=== PATIENT | female | born 1960 | race Caucasian/White ===

== ENCOUNTER 2024-02-15 10:42 | Emergency (ER) | payer MEDICARE, OTHER ==
[~2024-02-15] VITALS: Ht 165.1 cm; Wt 49.9 kg
[2024-02-15 10:45] VITALS: O2SAT 97
== END 2024-02-15 11:03 | disposition home or self-care (01) ==
LOC: ER 10:42
DX: K50.012 Crohn's disease of small intestine with intestinal obstruction (principal); Z93.3 Colostomy status; Z88.1 Allergy status to other antibiotic agents
CPT/HCPCS: A4606; A4663

== ENCOUNTER 2025-01-03 14:46 | Inpatient (IN) | payer MEDICARE, OTHER ==
[~2025-01-03] VITALS: Ht 167.6 cm; Wt 49.9 kg
[2025-01-03 08:40] VITALS: BP 99/55; TEMP 99.1; O2SAT 95
[2025-01-03 15:34] LABS: *BILIRUBIN,URIN NEGATIVE (NEGATIVE); *KETONES,URINE TRACE (NEGATIVE); *PROTEIN,URINE 1+ (NEGATIVE); *UROBILINOGEN,URINE 0.2 E.U./dl (NORMAL); LEUKOCYTE ESTERASE ,URINE TRACE (NEGATIVE); NITRITE, URINE POSITIVE (NEGATIVE); UGLUCOSE NEGATIVE (NEGATIVE)
[2025-01-03 15:46] LABS: *BLOOD, URINE TRACE (NEGATIVE)
[2025-01-03 15:47] LABS: *CLARITY,URINE SLIGHTLY CLOUDY (CLEAR); *COLOR,URINE DARK YELLOW (YELLOW)
[2025-01-03] MEDS ORDERED: ONDANSETRON 4 MG/2 ML VIAL ONE (15:57)
[2025-01-03] MEDS ORDERED: HYDROMORPHONE 1 MG/1 ML DISP.SYRIN ONE ×2 (15:57→16:52)
[2025-01-03 16:01] LABS: SQUAMOUS EPITHELIAL CELL,UR FEW /HPF (NONE SEEN); URINE AMORPHOUS URATE MODERATE /HPF
[2025-01-03] MEDS: ONDANSETRON 4 MG/2 ML VIAL IV ONE (16:10)
[2025-01-03] MEDS: IV NORMAL SALINE 1000 ML BAG IV ONE (16:10)
[2025-01-03] MEDS: HYDROMORPHONE 1 MG/1 ML DISP.SYRIN IV ONE ×2 (16:10→17:04)
[2025-01-03 16:24] LABS: PLATELET COUNT (AUTO) 305 K/uL (179-408); RED BLOOD CELL COUNT(AUTO) 3.89 MIL/uL (3.63-4.92); RED CELL DISTRIBUTION WIDTH 12.5 % (12.3-17.7); WHITE BLOOD COUNT (AUTO) 9.6 K/uL (3.8-11.8)
[2025-01-03 16:31] LABS: CREATININE 0.8 mg/dL (0.6-1.3); SODIUM SERUM 136 mmol/L (136-145); UREA NITROGEN, BLOOD 19 mg/dL (7-18)
[2025-01-03 16:49] LABS: ASPARTATE AMINOTRANSFERASE 15 U/L (15-37); TOTAL PROTEIN, SERUM 7.1 g/dL (6.4-8.2)
[2025-01-03] MEDS ORDERED: CEFTRIAXONE /D5W 50ML IVPB **ER PYXIS IV ONE (18:50)
[2025-01-03] MEDS ORDERED: KETOROLAC TROMETHAMINE 30 MG INJ ONE (18:50)
[2025-01-03] MEDS ORDERED: LORAZEPAM 2 MG/1 ML VIAL ONE (18:51)
[2025-01-03] MEDS: LORAZEPAM 2 MG/1 ML VIAL IV ONE (19:03)
[2025-01-03] MEDS: KETOROLAC TROMETHAMINE 30 MG INJ IVP ONE (19:03)
[2025-01-03 19:30] VITALS: BP 118/57
[2025-01-03] MEDS ORDERED: ACETAMINOPHEN 325 MG TABLET PO PRN (22:00)
[2025-01-03] MEDS ORDERED: REMEDY ESSENTIAL ZINC PASTE 113 GM TP PRN (22:00)
[2025-01-03] MEDS ORDERED: MAGNESIUM HYDROXIDE 30 ML LIQUID UDC PO PRN (22:00)
[2025-01-03] MEDS: HYDROMORPHONE 1 MG/1 ML DISP.SYRIN IV PRN (22:20)
[2025-01-03] MEDS: IV LACTATED RINGERS SOLUTION 1,000 ML IV SCH (22:23)
[2025-01-03] MEDS: ONDANSETRON 4 MG/2 ML VIAL IV PRN (22:54)
[2025-01-03] MEDS: POTASSIUM CHLORIDE 20 MEQ TAB.PRT.SR PO ONE (23:38)
[2025-01-04 03:53] VITALS: O2SAT 94
[2025-01-04 05:21] VITALS: BP 101/57; TEMP 99.4; O2SAT 97
[2025-01-04] MEDS: PANTOPRAZOLE SODIUM 40 MG TABLET.DR PO SCH ×2 (06:19→18:21)
[2025-01-04 06:47] LABS: PLATELET COUNT (AUTO) 273 K/uL (179-408); RED BLOOD CELL COUNT(AUTO) 3.58 MIL/uL (3.63-4.92); RED CELL DISTRIBUTION WIDTH 12.7 % (12.3-17.7); WHITE BLOOD COUNT (AUTO) 6.6 K/uL (3.8-11.8)
[2025-01-04 07:22] LABS: ASPARTATE AMINOTRANSFERASE 12.0 U/L (15-37); CREATININE 0.7 mg/dL (0.6-1.3); SODIUM SERUM 138.0 mmol/L (136-145); TOTAL PROTEIN, SERUM 6.0 g/dL (6.4-8.2); UREA NITROGEN, BLOOD 15.0 mg/dL (7-18)
[2025-01-04] MEDS: ENOXAPARIN SODIUM 40 MG/0.4 ML DISP.SYRIN SQ SCH (09:00)
[2025-01-04] MEDS ORDERED: DIATR MEGLU/DIATRIZOATE SODIUM 30 ML BOTTLE ONE (13:18)
[2025-01-04] MEDS ORDERED: SWABABLE VALVE TRANSFER SET EA MC ONE (13:23)
[2025-01-04] MEDS ORDERED: IV NORMAL SALINE 250 ML IV ONE (13:23)
[2025-01-04] MEDS ORDERED: IOHEXOL 300MG/ML 100 ML INFUS..BTL ONE (13:23)
[2025-01-04] MEDS: MAGNESIUM OXIDE 400 MG TABLET PO ONE (13:27)
[2025-01-04] MEDS: PHENAZOPYRIDINE HCL 100 MG TABLET PO SCH (13:27)
[2025-01-04 15:45] VITALS: BP 113/57; TEMP 97.5; O2SAT 98
[2025-01-04] MEDS: SUCRALFATE 1 G TABLET PO SCH (18:21)
[2025-01-04 22:25] VITALS: BP 116/61; TEMP 99.2; O2SAT 98
[2025-01-05 05:45] VITALS: BP 113/56; TEMP 99.2; O2SAT 92
[2025-01-05 06:47] LABS: CREATININE 0.7 mg/dL (0.6-1.3); SODIUM SERUM 141.0 mmol/L (136-145); UREA NITROGEN, BLOOD 8.0 mg/dL (7-18)
[2025-01-05 11:36] VITALS: BP 117/59; TEMP 98.4; O2SAT 99
[2025-01-05] MEDS: METOCLOPRAMIDE HCL 10 MG/2 ML VIAL IV SCH (11:37)
[2025-01-05] MEDS: GABAPENTIN 100 MG CAPSULE PO SCH (12:59)
[2025-01-05] MEDS: MAGNESIUM OXIDE 400 MG TABLET PO ONE (12:59)
[2025-01-05] MEDS: POTASSIUM CHLORIDE 20 MEQ TAB.PRT.SR PO ONE (12:59)
[2025-01-05 16:00] VITALS: BP 116/60; TEMP 98.7; O2SAT 100
[2025-01-05] MEDS: SUCRALFATE 1 G/10 ML LIQUID UDC PO SCH (16:39)
[2025-01-05 19:57] VITALS: BP 113/60; TEMP 99.3; O2SAT 96
== END 2025-01-05 19:42 | disposition left against medical advice (07) | DRG 98 ==
LOC: ER 14:46 → MEDSURG3 19:42
PROVIDERS: ADMIT Nurse Practitioner Acute Care; ATTEND Nurse Practitioner Acute Care
DX: G03.0 Nonpyogenic meningitis (principal); K50.90 Crohn's disease, unspecified, without complications; N39.0 Urinary tract infection, site not specified; Z59.01 Sheltered homelessness; Z93.3 Colostomy status; Z90.49 Acquired absence of other specified parts of digestive tract; K29.70 Gastritis, unspecified, without bleeding; K20.90 Esophagitis, unspecified without bleeding; E87.6 Hypokalemia; Z53.20 Procedure and treatment not carried out because of patient's decision for unspecified reasons; Z53.29 Procedure and treatment not carried out because of patient's decision for other reasons; K31.84 Gastroparesis
CPT/HCPCS: 36415; 70450; 83605; 83735; 84100; 84443; 84484; 85025; 85730; 87040; 87086; A4663; G0378; J0696; J1171; J1650; J1885; J2060; J2405; J2765; J7040; J7120; Q9963; Q9967